=== PATIENT | female | born 1995 | race Hispanic/Latino ===

== ENCOUNTER 2018-04-12 14:05 | Emergency (ER) | payer MEDICARE ==
--- NOTE | 2018-04-12 16:11 | XRay Report ---
FINAL REPORT EXAM: XR FOOT 3+V LT HISTORY: fracture on previous study COMPARISON: None. TECHNIQUE: Three views of the left foot FINDINGS: There is a transverse, nondisplaced fracture at the base of the 5th metatarsal. The remainder of the bones are intact. The joint spaces are preserved. There is diffuse soft tissue swelling. IMPRESSION: Transverse, nondisplaced fracture at the base of the 5th metatarsal bone.
--- NOTE | 2018-04-12 17:29 | Emergency Department Report ---
ED Extremity Problem HPI - General Chief complaint: Extremity Injury, Lower Stated complaint: BROKEN TOE Time Seen by Provider: 04/12/18 14:16 Source: EMS Mode of arrival: Stretcher Limitations: No Limitations - History of Present Illness Initial comments: 22-year-old female currently [facility] presents to the hospital with diagnosis foot fracture. Patient states she tripped and fell on April 06. She's had persisted pain and swelling to the left foot. X-ray of the left foot that showed a nondisplaced avulsion injury to the proximal fifth metatarsal. Patient has moderate pain that is constant, worse with palpation, ambulation, and movement. She denies any other injury. - Related Data Previous Rx's Medication Instructions Recorded Last Taken Type Ibuprofen [Motrin] 800 mg PO Q8HR PRN #30 tablet 04/12/18 Unknown Rx Allergies Allergy/AdvReac Type Severity Reaction Status Date / Time bupropion [From Wellbutrin] Allergy Unknown Verified 04/12/18 15:42 lorazepam [From Ativan] Allergy Unknown Verified 04/12/18 15:42 lurasidone [From Latuda] Allergy Unknown Verified 04/12/18 15:42 olanzapine [From Zyprexa] Allergy Unknown Verified 04/12/18 15:42 risperidone [From Risperdal] Allergy Unknown Verified 04/12/18 15:42 ED Review of Systems ROS: Stated complaint: BROKEN TOE Other details as noted in HPI Comment: All other systems reviewed and negative ED Past Medical Hx - Past Medical History Previous Medical History?: Yes Hx Psychiatric Treatment: Yes - Surgical History Past Surgical History?: No - Social History Smoking Status: Unknown if ever smoked Substance Use Type: Cocaine - Medications Home Medications: Home Medications Medication Instructions Recorded Confirmed Last Taken Type Ibuprofen [Motrin] 800 mg PO Q8HR PRN #30 tablet 04/12/18 Unknown Rx ED Physical Exam - General Limitations: No Limitations - Other Other exam information: General: No limitations, patient is alert in no acute distress Head exam: Atraumatic, normocephalic Eyes exam: Normal appearance, pupils equal reactive to light, extraocular movements intact ENT: Moist mucous membrane Neck exam: Normal inspection, full range of motion, no meningismus nontender Respiratory exam: Clear to auscultation bilateral, no wheezes, rales, crackles Cardiovascular: Normal rate and rhythm Abdomen: Soft, nondistended, and nontender, with normal bowel sounds, no rebound, or guarding Extremity: Generalized swelling to dorsum of left foot with ecchymosis. Tenderness to the dorsum and lateral foot. 2+ DP pulse. Full range of motion although painful Back: Normal Inspection, full range of motion, no tenderness Neurologic: Alert, oriented x3, cranial nerves intact, no motor or sensory deficit Psychiatric: normal affect, normal mood Skin: Warm, dry, intact ED Course Vital Signs 04/12/18 14:09 Temperature 98.4 F Pulse Rate 88 Respiratory 18 Rate Blood Pressure 116/72 O2 Sat by Pulse 98 Oximetry - Reevaluation(s) Reevaluation #1: 04/12/18 17:32 Motion for pain ordered. We do not have a cast shoe available and the appropriate size therefore OCL/posterior splint ordered - Orthopedic Splinting/Casting Injury #1 Side: left Lower Extremity Injury Location: foot Lower Extremity Immobilizer: posterior splint Other Orthopedic Equipment: crutches Additional Comments: placed by tech and inspected by me. ED Medical Decision Making - Radiology Data Radiology results: report reviewed FINAL REPORT EXAM: XR FOOT 3+V LT HISTORY: fracture on previous study COMPARISON: None. TECHNIQUE: Three views of the left foot FINDINGS: There is a transverse, nondisplaced fracture at the base of the 5th metatarsal. The remainder of the bones are intact. The joint spaces are preserved. There is diffuse soft tissue swelling. IMPRESSION: Transverse, nondisplaced fracture at the base of the 5th metatarsal bone. - Medical Decision Making OCL splint placed for pseudo-Mcpherson fracture. Weight-bearing as tolerated with orthopedic follow-up - Differential Diagnosis fxt, contusion, sprain Critical Care Time: No Critical care attestation.: If time is entered above; I have spent that time in minutes in the direct care of this critically ill patient, excluding procedure time. ED Disposition Clinical Impression: Fracture of 5th metatarsal Disposition: [id number] TO HOME OR SELFCARE Is pt being admited?: No Does the pt Need Aspirin: No Condition: Stable Instructions: Toe Fracture (ED) Additional Instructions: Take the medication as prescribed. Follow up with orthopedics or podiatry. Return if symptoms worsen as indicated by your discharge instructions Prescriptions: Ibuprofen [Motrin] 800 mg PO Q8HR PRN #30 tablet PRN Reason: Pain, Moderate (4-6) Referrals: LACEY VOGEL DPM [Staff Physician] - 3-5 Days ([facility]) GLORIA WALKER MD [Staff Physician] - 3-5 Days (Orthopedic doctor) Time of Disposition: 17:54
[2018-04-12] MEDS ORDERED: IBUPROFEN PO ONE (17:30)
[2018-04-12 21:41] VITALS: BP 118/74
== END 2018-04-12 21:44 | disposition home or self-care (01) ==
LOC: ED 14:05
DX: S92.352A Displaced fracture of fifth metatarsal bone, left foot, initial encounter for closed fracture (principal); W01.0XXA Fall on same level from slipping, tripping and stumbling without subsequent striking against object, initial encounter; Y93.89 Activity, other specified; Y92.89 Other specified places as the place of occurrence of the external cause; Y99.8 Other external cause status